=== PATIENT | female | born 1970 | race Caucasian/White ===

== ENCOUNTER 2017-08-28 16:34 | Emergency (ER) | payer SELFPAY ==
[2017-08-29] MEDS ORDERED: TIROSINT50 MC1 PO (02:21)
[2017-08-29] MEDS ORDERED: NAPROXEN500 MG PO (02:22)
[2017-08-29] MEDS ORDERED: METFORMIN HCL500 MG PO (02:22)
[2017-08-29] MEDS ORDERED: ZESTRIL20 MG PO (02:22)
== END 2017-08-28 17:10 | disposition left against medical advice (07) ==
LOC: ED 16:34
DX: Z53.21 Procedure and treatment not carried out due to patient leaving prior to being seen by health care provider (principal)

== ENCOUNTER 2017-08-28 21:26 | Emergency (ER) | payer SELFPAY ==
[2017-08-28 23:31] LABS: BASOPHIL % 0.7 % (0-2); PLATELET COUNT 269 x10^3mcL (130-400); RED CELL DISTRIBUTION WIDTH 16.8 % (11.5-14.5)
[2017-08-28 23:46] LABS: ALBUMIN 3.4 g/dL (3.4-5.0); ALKALINE PHOSPHATASE 92 U/L (46-116); ALT/SGPT 26 U/L (14-59); AST/SGOT 20 U/L (15-37); BILIRUBIN TOTAL 0.4 mg/dL (0.20-1.00); CALCIUM 8.5 mg/dL (8.5-10.1); CARBON DIOXIDE 25.2 mmol/L (21-32); CHLORIDE SERUM 102 mmol/L (98-107); CREATININE SERUM 0.7 mg/dL (0.6-1.0); GFR1 > 60 mL/min; GLUCOSE SERUM 137 mg/dL (74-106); LIPASE 134 IU/L (73-393); POTASSIUM SERUM 3.8 mmol/L (3.5-5.1); SODIUM SERUM 136 mmol/L (136-145); TOTAL PROTEIN, SERUM 7.9 g/dL (6.4-8.2)
[2017-08-29] MEDS ORDERED: TIROSINT50 MC1 PO (02:21)
[2017-08-29] MEDS ORDERED: NAPROXEN500 MG PO (02:22)
[2017-08-29] MEDS ORDERED: METFORMIN HCL500 MG PO (02:22)
[2017-08-29] MEDS ORDERED: ZESTRIL20 MG PO (02:22)
[2017-08-29 02:38] LABS: CHOLESTEROL/HDL RATIO 2.7; PHOSPHOROUS 4.1 mg/dL (2.5-4.9)
[2017-08-29 02:45] LABS: T3 TOTAL 1.37 ng/mL
[2017-08-29 02:52] LABS: FREE T4 0.98 ng/dL (0.76-1.46); T4(THYROXINE) 11.6 ug/dL (4.7-13.3)
[2017-08-29 04:50] LABS: UA SPECIFIC GRAVITY <=1.005 (1.005-1.035); microscopic required? YES; urine erythrocyte TRACE (NEGATIVE)
[2017-08-29 04:59] LABS: AMPHETAMINE QUAL UR NONE DETECTED (NEG <=1000)
[2017-08-29 07:53] VITALS: BP 154/93
== END 2017-08-29 07:54 | disposition left against medical advice (07) ==
LOC: ED 21:26
PROVIDERS: Emergency Medicine; Family Medicine Sports Medicine
DX: N83.512 Torsion of left ovary and ovarian pedicle (principal); I10 Essential (primary) hypertension; E66.01 Morbid (severe) obesity due to excess calories
CPT/HCPCS: 83880; 84439; J1885; J3010; J7030; Q0092; Q0162